=== PATIENT | male | born 1975 | race Caucasian/White ===

== ENCOUNTER → 2020-12-17 | Outpatient (CLI) | payer OTHER ==
[~2020-12-17] MED LIST: AMBIEN10 MG PO; ASPIRIN EC81 MG PO; B-121000 MCG PO; BASAGLAR K100 UNIT/1 SQ; BENTYL 10MG CAP10 MG PO; CLONAZEPAM1 MG PO; CYANOCOBAL1000 MCG/1 INJ; EFFEXOR XR75 MG PO; FLEXERIL 10 MG10 MG PO; FLOMAX0.4 MG PO; FOLIC ACID 1 MG1 MG PO; IBUPROFEN800 MG PO; IMODIUM CAP 2 MG2 MG PO; INDERAL TAB 2020 MG PO; INDERAL TAB 4040 MG PO; KLONOPIN TAB 00.5 MG PO; LEVOTHYROXINE25 MCG PO; LINZESS290 MCG PO; LOMOTIL 2.5-0.1 EACH PO; METHOCARBAMOL750 MG PO; METRONIDAZOLE500 MG PO; MIRALAX17 GM PO; NORCO 5-325 TA1 EACH PO; NORVASC 5 MG TAB5 MG PO; NORVASC10 MG PO; PEG3350510 GM PO; PROCTOCREAM-HC30 GM PR; PROCTOZONE-HC30 GM PR; PROTONIX 40 MG40 MG PO; PROTONIX40 M1 PO; PROTONIX40 MG PO; RELPAX40 MG PO; SIMVASTATIN20 MG PO; SYNTHROID 25 M25 MCG PO; TOPAMAX50 MG PO; TOPIRAMATE50 MG PO; TORADOL 10 MG T10 MG PO; VENLAFAXINE HC150 MG PO; VITAMIN D3 PO; VITAMIN D31250 MCG PO; ZANAFLEX 4 MG TA4 MG PO; ZOCOR20 MG PO; ZOFRAN ODT 4 MG4 MG PO; ZOFRAN ODT 4 MG4 MG SL; ZOLPIDEM TARTRA10 MG PO
== END ==
LOC: RAD 08:08
DX: R13.10 Dysphagia, unspecified (principal)
CPT/HCPCS: 74220

== ENCOUNTER → 2021-01-01 | Outpatient (CLI) | payer OTHER | LOC: EXRD 15:44 | DX: M54.41 Lumbago with sciatica, right side (principal); M47.26 Other spondylosis with radiculopathy, lumbar region; M47.27 Other spondylosis with radiculopathy, lumbosacral region | CPT/HCPCS: 72100 ==

== ENCOUNTER → 2021-01-15 | Outpatient (CLI) | payer OTHER ==
[2021-01-15 16:33] LABS: HEMOGLOBIN 16.2 gm/dl (14.0-17.5); RED BLOOD COUNT 5.18 M/UL (4.20-5.50); WHITE BLOOD COUNT 7.9 K/UL (4.5-11.0)
[2021-01-15 16:48] LABS: BUN/CREATININE RATIO 21 (0-10)
== END ==
LOC: LAB 15:39
PROVIDERS: Colon & Rectal Surgery
DX: Z01.812 Encounter for preprocedural laboratory examination (principal); K64.1 Second degree hemorrhoids
CPT/HCPCS: 36415; 80048; 85027; 93005

== ENCOUNTER → 2021-01-16 | Outpatient (CLI) | payer OTHER | LOC: ECHO 13:01 | DX: Z01.810 Encounter for preprocedural cardiovascular examination (principal); K64.1 Second degree hemorrhoids; I45.10 Unspecified right bundle-branch block | CPT/HCPCS: 93005 ==

== ENCOUNTER → 2021-05-20 | Outpatient (CLI) | payer OTHER | LOC: RAD 16:15 | DX: R07.81 Pleurodynia (principal); S22.31XA Fracture of one rib, right side, initial encounter for closed fracture; W19.XXXA Unspecified fall, initial encounter | CPT/HCPCS: 71101 ==

== ENCOUNTER → 2021-07-25 | Outpatient (CLI) | payer OTHER | LOC: CT 09:32 | DX: R19.4 Change in bowel habit (principal); R10.11 Right upper quadrant pain; R11.2 Nausea with vomiting, unspecified; R63.4 Abnormal weight loss | CPT/HCPCS: Q9967 ==

== ENCOUNTER → 2021-07-29 | Outpatient (CLI) | payer OTHER | LOC: HEART 5 14:46 | DX: R00.0 Tachycardia, unspecified (principal) ==

== ENCOUNTER → 2022-04-02 | Outpatient (CLI) | payer OTHER | LOC: EXRD 13:46 | DX: S09.93XA Unspecified injury of face, initial encounter (principal); M54.2 Cervicalgia | CPT/HCPCS: 70260; 72050 ==

== ENCOUNTER → 2022-05-02 | Outpatient (CLI) | payer OTHER | LOC: CATH 03-17 10:00 | DX: I95.1 Orthostatic hypotension (principal) ==

== ENCOUNTER 2022-06-16 18:50 | Emergency (ER) | payer OTHER ==
[2022-06-16 19:52] LABS: HEMOGLOBIN 14.5 gm/dl (14.0-17.5); RED BLOOD COUNT 4.43 M/UL (4.20-5.50); WHITE BLOOD COUNT 7.3 K/UL (4.5-11.0)
[2022-06-16 20:22] LABS: BUN/CREATININE RATIO 15 (0-10)
== END 2022-06-17 00:18 | disposition home or self-care (01) ==
LOC: ER1 18:50
PROVIDERS: Physician Assistant
DX: R10.84 Generalized abdominal pain (principal); E11.9 Type 2 diabetes mellitus without complications; Z88.6 Allergy status to analgesic agent
CPT/HCPCS: 80053; 81001; 85025; 99284; Q9967